=== PATIENT | female | born 1970 | race Caucasian/White ===

== ENCOUNTER → 2019-07-08 | Outpatient (CLI) | payer OTHER ==
[2019-07-08 09:43] LABS: BASOPHIL % 1.1 % (0-2); PLATELET COUNT 280 x10^3mcL (130-400)
[2019-07-08 09:44] LABS: RED CELL DISTRIBUTION WIDTH 15.5 % (11.5-14.5)
[2019-07-08 11:30] LABS: IRON 16 ug/dL (50-170); TOTAL IRON BINDING CAPACITY 327 ug/dL (250-450)
== END | disposition home or self-care (01) ==
LOC: LB 09:11
PROVIDERS: Internal Medicine
DX: D64.9 Anemia, unspecified (principal)

== ENCOUNTER → 2020-06-05 | Outpatient (CLI) | payer OTHER, SELFPAY | END | disposition home or self-care (01) | LOC: LB 15:38 | DX: U07.1 COVID-19 (principal) | CPT/HCPCS: U0003 ==